=== PATIENT | female | born 1960 | race Caucasian/White ===

== ENCOUNTER → 2017-06-02 | Outpatient (CLI) | payer OTHER ==
[~2017-06-02] MED LIST: BYST2.5T2 PO; EMPA1TAB PO; GABA300C3 PO; GLUCTAB PO; HYDR-3533 PO; LISI-586 PO; MOBI15TA PO; ROSU40 PO
[2017-06-02 13:43] LABS: BLOOD GAS BASE EXCESS -2.6 mmol/L (-2-2); BLOOD GAS CARBOXYHEMOGLOBIN 1.5 % (0-4); BLOOD GAS HCO3 22 mmol/L (22-26); BLOOD GAS O2 HGB SATURATION 94 % (90-100); BLOOD GAS OXYGEN CONTENT 18.2 Vol % (12.0-20.0); BLOOD GAS PCO2 37 mmHg (38-42); BLOOD GAS PO2 86 mmHg (61-120); BLOOD GAS TOTAL HGB 13.7 G/DL (12.0-16.0); CRITICAL VALUE NO; DRAW SITE RT RADIAL; FIO2 21 %; NUMBER OF ARTERIAL PUNCTURES 1; STAT NO; TEMP CORR TO 98.6; ULNAR PULSE PRESENT
--- NOTE | 2017-06-08 08:57 | RSPPFT ---
DATE OF PROCEDURE: 06/02/17 COMMENTS: Spirometry with FVC of 2.89, FEV1 of 2.0, FEV1/FVC ratio at 73%. A positive and significant response to acutely inhaled bronchodilator noted. Slow vital capacity is 76% of predicted. TLC is 85%. Diffusion capacity is normal. Room air arterial blood gases show pH of 7.39, PCO2 of 36, PO2 of 86. IMPRESSION: 1. Mild airways obstruction. 2. Positive and significant response to acutely inhaled bronchodilator. 3. No evidence of airways restriction. 4. Normal diffusion capacity.
== END ==
LOC: HRSP 13:01
PROVIDERS: ATTEND Internal Medicine Sleep Medicine
DX: R06.89 Other abnormalities of breathing (principal)
CPT/HCPCS: 36600; 82805; 94060; 94726; 94729